=== PATIENT | female | born 1995 ===

== ENCOUNTER 2020-06-02 15:15 | Emergency (ER) | payer OTHER, MEDICAID, SELFPAY ==
[2020-06-02 16:09] VITALS: BP 130/77; PULSE 106; RESP 18; TEMP 36.9; O2SAT 100
[2020-06-02 16:50] LABS: Anion Gap 12 mmol/L (8-16); Blood Urea Nitrogen 6 mg/dL (7-17); Calcium 9.5 mg/dL (8.4-10.2); Carbon Dioxide 23 mmol/L (22-30); Chloride 103 mmol/L (98-107); Estimated CRCL calculation 105 ml/min; Estimated Glomerular Filt Rate > 60; Glucose 120 mg/dL (65-105); Sodium 138 mmol/L (137-145)
--- NOTE | 2020-06-02 17:03 | PC.NURSE ---
Pt ambulatory to desk, states can you just send me my blood tests, I'm going to go. It's storming out and my mom is really sick in the car . Explained that this RN cannot release medical records to patient without having been evaluated by a physician. Recommended patient return to medical records tomorrow to sign a release or to have her PMD contact the hospital with a release. Verb understanding.
[2020-06-02 18:27] LABS: Basophils Absolute Auto 0.1 K/mm3 (0.0-0.1); Basophils Percent Auto 0.4 % (0.2-1.2); Eosinophils Absolute Auto 0.3 K/mm3 (0-0.3); Eosinophils Percent Auto 2.2 % (0-4.4); Hemoglobin 12.1 g/dL (12.0-15.0); Immature Granulocyte Absolute 0.03 K/mm3 (0.00-0.031); Immature Granulocyte Percent A 0.3 % (0-0.5); Lymphocytes Absolute Auto 2.44 K/mm3 (0.9-3.2); Lymphocytes Percent Auto 21.5 % (18.3-44.2); Mean Corpuscular HGB Conc 34.6 g/dl (32-36); Mean Corpuscular Hemoglobin 31.3 pg (26-34); Mean Corpuscular Volume 90.4 fl (80-100); Mean Platelet Volume 10.4 fl (7.4-10.4); Monocytes Absolute Auto 0.5 K/mm3 (0.1-0.6); Neutrophils Absolute Auto 8.2 K/mm3 (1.3-6.7); Neutrophils Percent Auto 71.6 % (45.5-73.1); Platelet Count Result 251 k/mm3 (150-375); Red Blood Count 3.87 M/mm3 (4.2-5.4); Red Cell Distribution Width 12.4 % (11.5-14.5); White Blood Count 11.4 K/mm3 (4.5-10.0)
== END 2020-06-02 17:05 | disposition left against medical advice (07) ==
LOC: ANHED 06-03 09:39
PROVIDERS: Emergency Provider Emergency Medicine
DX: R11.0 Nausea (principal)
CPT/HCPCS: 36415; 80048; 84702; 85025; 86850; 86900; 86901; 99199